=== PATIENT | female | born 1970 | race Caucasian/White ===

== ENCOUNTER 2016-07-29 09:00 | Outpatient (CLI) | payer BC ==
[~2016-07-29] VITALS: Ht 167.6 cm; Wt 88.0 kg
[~2016-07-29 09:00] MED LIST: ESTR1TAB24 PO; HYDR-707 PO; METF-380 PO; NF-ROP5T PO; PRV20T PO; SRTR100T PO
[2016-07-30] MEDS ORDERED: SULF500T7 PO (13:21)
[2016-07-30] MEDS ORDERED: PANT40TA2 PO (13:21)
== END 2016-07-29 10:01 ==
LOC: PREOP 09:00
PROVIDERS: ATTEND Surgery Pediatric Surgery
DX: Z01.818 Encounter for other preprocedural examination (principal); K62.5 Hemorrhage of anus and rectum; K21.9 Gastro-esophageal reflux disease without esophagitis

== ENCOUNTER 2016-07-30 09:54 | Day surgery (SDC) | payer BC ==
[~2016-07-30] VITALS: Ht 167.6 cm; Wt 88.0 kg
[2016-07-30] MEDS ORDERED: FLUMAZENIL (ROMAZICON) 0.1 MG/ML 5 ML VIAL INJ PRN (10:15)
[2016-07-30] MEDS ORDERED: LIDOCAINE JELLY 2% (XYLOCAINE) 5 ML TUBE MM PRN (10:15)
[2016-07-30] MEDS ORDERED: NALOXONE 0.4 MG/ML 1 ML (NARCAN) VIAL IVP PRN (10:15)
[2016-07-30] MEDS ORDERED: HURRICAINE EXT TUBE (BENZOCAINE) XX PRN (10:15)
[2016-07-30] MEDS ORDERED: fentaNYL INJECTION 100 MCG/2 ML AMP ONE ×3 (10:19→12:12)
[2016-07-30] MEDS ORDERED: NS IV 500 ML 500 ML IV PRN (10:20)
[2016-07-30] MEDS: fentaNYL INJECTION 100 MCG/2 ML AMP IVP PRN ×6 (10:25→12:28)
[2016-07-30 10:28] VITALS: BP 117/77
--- NOTE | 2016-07-30 10:37 | Conscious Sedation/ASA ---
Conscious Sedation Pre-Proced Time Reviewed: 10:35 ASA Class: 2 Airway Mallampati Classification: ([place] appropriate class) I. II. III, IV Lungs Heart ASA score ASA 1: a normal healthy patient ASA 2: a patient with a mild systemic disease (mid diabetes, controlled hypertension, obesity ASA 3: a patient with a severe systemic disease that limits activity (angina , COPD, prior Myocardial infarction) ASA 4: a patient with an incapacitating disease that is a constant threat to life (CHF, renal failure) ASA 5: a moribund patient not expected to survive 24 hrs. (ruptured aneurysm) ASA 6: a declared brain patient whose organs are being harvested. For emergent operations, add the letter E after the classification Grade 2 Sedation Plan: Analgesia, Amnesia, Plan communicated to team members, Discussed options with patient/fam, Discussed risks with patient/fam Note The patient is an appropriate candidate to undergo the planned procedure, sedation, and anesthesia. The patient immediately re-assessed prior to indication. FEDERICO HAIR MD Jul 30, 2016 10:37 am
--- NOTE | 2016-07-30 10:38 | Progress Note-Pre Operative ---
Pre-Operative Progress Note H&P Reviewed The H&P was reviewed, patient examined and no changes noted. Date Seen by Provider: Jul 30, 2016 Time Seen by Provider: 10:35 Date H&P Reviewed: Jul 30, 2016 Time H&P Reviewed: 10:35 Pre-Operative Diagnosis: GERD, abd pain, bloody diarrhea FEDERICO HAIR MD Jul 30, 2016 10:38 am
[2016-07-30] MEDS ORDERED: HYDROcodone/APAP 5 MG/325 MG (LORTAB) TAB PO PRN (10:45)
[2016-07-30] MEDS ORDERED: morphine INJ 10 MG/ML 1ML (SYR OR VIAL) IV PRN (10:45)
[2016-07-30] MEDS ORDERED: ACETAMINOPHEN 325 MG TABLET/CAPLET (TYLENOL) PO PRN (10:45)
[2016-07-30] MEDS ORDERED: ONDANSETRON 4 MG/2 ML (SDV) Z0FRAN IV PRN (10:45)
[2016-07-30] MEDS ORDERED: LIDOCAINE JELLY 2% (XYLOCAINE) 5 ML TUBE ONE (10:59)
[2016-07-30] MEDS ORDERED: HURRICAINE EXT TUBE (BENZOCAINE) ONE (11:00)
[2016-07-30] MEDS ORDERED: MIDAZOLAM 2 MG/2 ML (VERSED) VIAL ONE ×7 (11:00→12:12)
[2016-07-30] MEDS: MIDAZOLAM 2 MG/2 ML (VERSED) VIAL IVP PRN ×7 (11:35→12:35)
[2016-07-30 13:05] VITALS: BP 117/77
--- NOTE | 2016-07-30 13:19 | Progress Note-Post Operative ---
Post-Operative Progess Note Surgeon (s)/[employer] Certified Network Associate (s) Surgeon FEDERICO HAIR MD [employer] Certified Network Associate: none Pre-Operative Diagnosis GERD, abd pain, bloody diarrhea Post-Operative Diagnosis reflux esophagitis(class B), small HH(1.5cm), moderate gastritis. chronic stage 2 ext and int hemorrhoids, chronic anal-vaginal fistula, mild inflammation cecum. Procedure & Operative Findings Date of Procedure 07/30/16 Procedure Performed/Findings EGD with bx. Colonoscopy with bx. Anesthesia Type CS Estimated Blood Loss Estimated blood loss (mL): minimal Specimens/Packing Specimens Removed ge jxn, antrum. mutiple random colon and rectal bx, fistula bx. FEDERICO HAIR MD Jul 30, 2016 1:19 pm
[2016-07-30] MEDS ORDERED: PANT40TA2 PO (13:21)
[2016-07-30] MEDS ORDERED: SULF500T7 PO (13:21)
--- NOTE | 2016-07-30 13:22 | Discharge Inst-Surgical ---
D/C Lap Instructions-LAXMI New, Converted, or Re-Newed RX: RX on Chart Follow Up Appt in 2 weeks Activity as tolerated Low residue diet. Avoid Alcohol, Caffeine, Spicy [place] and Acid foods. Drink 64 fluid oz or more of fluids per day. Symptoms to Report: Fever over 101 degree F, Nausea/Vomiting If any problems/questions: Contact your physician or go to Emergency Room FEDERICO HAIR MD Jul 30, 2016 1:22 pm
[2016-07-30 13:35] VITALS: BP 102/63
[2016-07-30 14:00] VITALS: BP 102/63
--- NOTE | 2016-07-30 20:47 | OPERATIVE REPORT ---
DATE OF SERVICE: 07/30/2016 ATTENDING PRIMARY CARE PHYSICIAN: Dr. Mark Morataya. PREOPERATIVE DIAGNOSES: Gastroesophageal reflux disease, abdominal pain, rectal bleeding. POSTOPERATIVE DIAGNOSES: Reflux esophagitis class B, small hiatal hernia approximately 1.5 cm in size, moderate gastritis. No mucosal inflammatory change to indicate any upper gastrointestinal inflammatory bowel disease. Chronic stage II external internal hemorrhoids, palpable lesion with what appeared to be chronic scar tissue as well as a recurrent anovaginal fistula and mild inflammation of the cecum. PROCEDURE: EGD with biopsy, colonoscopy with biopsy. SURGEON: Federico Otero MD ANESTHESIA: Conscious sedation. ESTIMATED BLOOD LOSS: Minimal. FINDINGS: EGD reflux esophagitis class B, small hiatal hernia approximately 1.5 cm in size, moderate severity gastritis. Pylorus and duodenum appeared normal. There were no mucosal inflammatory changes throughout the upper gastrointestinal tract. Colonoscopy chronic stage II external internal hemorrhoids, recurrent anovaginal fistula with a chronic scar tissue, possible mild inflammation of the cecum. DISPOSITION: The patient tolerated the procedure well. INDICATIONS: The patient is a 46-year-old female who was initially seen on 07/19/2016. She reports issues with crampy abdominal pain and rectal bleeding as well as mucusy stools even during her teen years. This was initially mild; however, has worsened over time. Twenty years ago after the of her first child, she began having issues with rectal bleeding and did experience traumatic delivery requiring episiotomy. From that point, she developed what appears to be a fistula from the superficial anus to the vagina. She reports she has had a total of three surgeries to try to repair the fistula; however, all have recurred. She reports crampy abdominal pain with mucusy stool mixed with red blood. She did have a colonoscopy in 2011 and believes that to be normal. She also underwent a diagnostic laparoscopy in 2011 for suspected appendicitis and there were some mild serositis indicating potential inflammatory bowel disease. She also underwent an appendectomy at that time. She reports that her symptoms have continued to worsen over time which are symptoms consistent with inflammatory bowel disease, especially Crohn's disease. Upon further questioning, she does report that she has had aphthous ulcers frequently in her mouth. She was also diagnosed with Sjogren syndrome some time ago. DESCRIPTION OF PROCEDURE: The patient was brought to the endoscopy suite, laid in the left lateral decubitus position with head slightly elevated. After adequate IV pain and sedating medications, the mouthpiece was applied. The endoscope was placed in the mouth visualizing the pharynx and hypopharyngeal region. Vocal cords, epiglottis and vallecula identified and appeared to be normal. The endoscope was then gently intubated in the esophageal opening and esophagus insufflated. The endoscope was then advanced to the first, second and third portions of the esophagus. At the level of the GE junction, a reflux esophagitis class B identified. There were no ulcers or strictures identified in this region. A biopsy was taken with forceps with visualization of good hemostasis. The endoscope was then easily advanced in the stomach. The endoscope retroflexed, visualizing a small hiatal hernia approximately 1.5 cm in size. There was a moderate severity gastritis, more towards the stomach antrum. There were no ulcers or polyps identified. A biopsy was taken with forceps with visualization of good hemostasis. The endoscope was then advanced to the pylorus and the first and second portion of the duodenum. Throughout the upper gastrointestinal tract, there were no classic mucosal inflammatory changes to indicate any active inflammatory bowel disease. The endoscope was then slowly withdrawn taking a second look and suctioning all residual air with no additional findings. The patient tolerated this portion of the procedure well. For her gastritis, reflux esophagitis and hiatal hernia, we will recommend the necessary lifestyle and diet accommodation including small and more frequent meals, avoidance of eating at night as well as head elevation while lying supine. She also needs to proceed with smoking cessation as well as to avoid caffeinated beverages, spicy, greasy and acidic foods. We will also start her on Protonix 40 mg daily. Under the same conscious sedation anesthesia, we then proceeded with the colonoscopy portion of the procedure. A digital rectal examination was performed which revealed chronic stage II external and internal hemorrhoids. There was also a small sinus tract encompassing the anterior anus to the vagina consistent with recurrent anovaginal fistula. This was also palpable indicating some level of chronic granulomatous tissue or scar tissue formation. The endoscope was then intubated to the anus and rectum and gently insufflated. The fistula was identified. The endoscope was then advanced to the valves of [place] of the rectum with no mucosal inflammatory changes. We then proceeded to remainder of the descending, transverse and ascending colon to the cecum. At the level of the cecum, there may have been some very mild inflammatory changes. Random biopsies were then taken of the cecum, ascending colon, descending colon, rectum and around the anal fistula using biopsy forceps with visualization of good hemostasis. The patient tolerated this portion of the procedure well. We will await the biopsy results; however start her on 5-aminosalicylic acid in hopes of symptomatic control. Job ID: [id number] DocumentID: [id number] Dictated Date: 07/30/2016 13:10:55 Hydrology Teacher Date: 07/30/2016 20:46:41 Dictated By: FEDERICO OTERO MD
--- OUTSIDE RECORDS SUMMARY | 2016-08-02 14:44 | XMS REPORT | Continuity of Care Document ---
Author Author [facility] Organization [facility] Address Unknown Phone Unavailable Allergies Active Description Code Type Severity Reaction Onset Reported/Identified Relationship to Patient Clinical Status Yes No Known Drug Allergies Drug Allergy N/A N/A 02/16/2013 Yes Reglan Drug Allergy N/A RESTLESS LEG 02/19/2013 Medications Problems Date Dx Coded Attending Type Code Diagnosis Diagnosed By 02/19/2013 Jude Gauthier MD 250.00 DM2/NOS UNCOMP NSU 02/19/2013 Jude Gauthier MD Final 296.80 BIPOLAR DISORDER NOS 02/19/2013 Jude Gauthier MD Final 530.81 ESOPHAGEAL REFLUX 02/19/2013 Jude Gauthier MD Final 556.9 ULCERATIVE COLITIS NOS 02/19/2013 Jude Gauthier MD Final 619.1 FE DIGEST-GENIT FISTULA Procedures Code Description Performed By Performed On 70.73 REP RECTOVAGINAL FISTULA Jude Gauthier MD 02/19/2013 Results Encounters ACCT No. Visit Date/Time Discharge Status Pt. Type Provider Facility Loc./Unit Complaint [id number] 02/19/2013 05:23:00 2013 13:45:00 DIS Inpatient Jude Gauthier MD [facility] on [address]
== END 2016-07-30 14:00 | disposition home or self-care (01) ==
LOC: ENDO 09:54
PROVIDERS: ATTEND Surgery
DX: K62.5 Hemorrhage of anus and rectum (principal); N82.3 Fistula of vagina to large intestine; K64.1 Second degree hemorrhoids; K21.0 Gastro-esophageal reflux disease with esophagitis; K44.9 Diaphragmatic hernia without obstruction or gangrene; K29.70 Gastritis, unspecified, without bleeding; E11.9 Type 2 diabetes mellitus without complications; K58.9 Irritable bowel syndrome, unspecified; Q87.1 Congenital malformation syndromes predominantly associated with short stature; G25.81 Restless legs syndrome; F41.9 Anxiety disorder, unspecified; F32.9 Major depressive disorder, single episode, unspecified; F17.210 Nicotine dependence, cigarettes, uncomplicated; Z79.899 Other long term (current) drug therapy

== ENCOUNTER 2022-01-11 05:38 | Outpatient (CLI) | payer BC ==
[~2022-01-11] VITALS: Ht 167.6 cm; Wt 77.6 kg
[~2022-01-11 05:38] MED LIST changes: +PANT40TA2 PO; +SLF500T PO
[2022-01-11] MEDS ORDERED: ROPI5TAB3 PO (15:58)
[2022-01-11] MEDS ORDERED: OMEP40CA6 PO (15:58)
== END 2022-01-11 16:04 | disposition home or self-care (01) ==
LOC: PREOP 05:38
PROVIDERS: ATTEND Surgery
DX: Z01.818 Encounter for other preprocedural examination (principal)

== ENCOUNTER 2022-01-18 08:10 | Day surgery (SDC) | payer BC ==
[~2022-01-18] VITALS: Ht 167.6 cm; Wt 77.6 kg
[~2022-01-18 08:10] MED LIST changes: +OMEP40CA6 PO; +ROPI5TAB3 PO
[2022-01-18] MEDS ORDERED: LACTATED RINGERS 1,000 ML IV STA (08:13)
[2022-01-18] MEDS ORDERED: HURRICAINE EXT TUBE (BENZOCAINE) XX PRN (08:15)
--- NOTE | 2022-01-18 08:23 | Progress Note-Pre Operative ---
Pre-Operative Progress Note Date of Available H&P: Jan 07, 2022 Date H&P Reviewed: Jan 18, 2022 Time H&P Reviewed: 08:22 History & Physical: H&P Reviewed, Patient Examed, No changes noted Pre-Operative Diagnosis: Abdominal pain SEN CAIN DO Jan 18, 2022 08:23
[2022-01-18 08:29] VITALS: BP 143/84
[2022-01-18] MEDS ORDERED: MIDAZOLAM 2 MG/2 ML (VERSED) VIAL ONE (08:50)
[2022-01-18] MEDS ORDERED: PROPOFOL INJECTION 50 ML IV ONE (08:51)
[2022-01-18 09:15] VITALS: BP 119/58
--- NOTE | 2022-01-18 09:15 | Progress Note-Post Operative ---
Post-Operative Progess Note Surgeon (s)/Embedded Software Design Engineer (s) Surgeon SEN CAIN DO Embedded Software Design Engineer: none Pre-Operative Diagnosis Abdominal pain Post-Operative Diagnosis Gastritis Hiatal hernia Procedure & Operative Findings Date of Procedure 01/18/22 Procedure Performed/Findings EGD with bx PROCEDURE NOTE: After informed consent was obtained, the patient was brought to the endoscopy suite, placed in bed in left lateral decubitus position. She was administered IV sedation by the COMPOSING MACHINE OPERATOR who then monitored vitals the entire time, heart rate, blood pressure and pulse ox and the scope was inserted down the mouth through the esophagus into the stomach. Pushed into the stomach, past the antrum and into the duodenum. Duodenum looked good. Pulled back, noted some moderate Gastritis, took a couple of pictures and did a biopsy of the antrum and body of the stomach. Then retroflexed the scope, saw a small hiatal hernia, the stomach appeared to be almost nodular; took a picture of this. Then pulled the scope into the GE junction and did a biopsy of the GE junction. Pushed the scope back into the stomach, suctioned all the air out of the stomach. At this point pulled the scope up the esophagus and out the mouth. The patient tolerated the procedure, and she recovered in endoscopy suite. Anesthesia Type IV sedation by COMPOSING MACHINE OPERATOR Estimated Blood Loss Estimated blood loss (mL): scant Specimens/Packing Specimens Removed antral bx body of stomach bx GE jxn bx SEN CAIN DO Jan 18, 2022 09:15
--- NOTE | 2022-01-18 09:16 | Endoscopy Discharge Instruct ---
Endo Procedure/Findings Findings 1.: Gastritis 2.: Hiatal Hernia Discharge Instructions - Activity: You might feel a little sleepy until tomorrow. This is due to the medicine you received to relax you. Until tomorrow, you should: NOT drive a car, operate machinery or power tools. NOT drink any alcoholic beverages. NOT make any important decisions or sign importortant papers. Do not return to work until tomorrow, unless otherwise instructed. Resume previous activities tomorrow. Diet: Start by taking liquids. If you tolerate liquids, advance to solid food. 1.: EGD in 3 years Notify Physician - If you experience excessive bleeding, unusual abdominal pain, fever, or chest pain, contact your doctor immediately. SEN CAIN DO Jan 18, 2022 09:16
[2022-01-18 09:20] VITALS: BP 105/55
[2022-01-18 09:25] VITALS: BP 106/59
[2022-01-18 09:38] VITALS: BP 110/59
[2022-01-18 09:42] VITALS: BP 110/59
--- NOTE | 2022-01-18 13:29 | Anesthesia-General Post-Op ---
MAC Patient Condition Mental Status/LOC: Same as Preop Cardiovascular: Satisfactory Nausea/Vomiting: Absent Respiratory: Satisfactory Pain: Controlled Complications: Absent Post Op Complications Complications None Follow Up Care/Instructions Patient Instructions None needed. Anesthesiology Discharge Order Discharge Order Patient is doing well, no complaints, stable vital signs, no apparent adverse anesthesia problems. No complications reported per nursing. BRYAN SAGASTUME CRNA Jan 18, 2022 13:29
== END 2022-01-18 09:50 | disposition home or self-care (01) ==
LOC: ENDO 08:10
PROVIDERS: ATTEND Surgery
DX: K29.70 Gastritis, unspecified, without bleeding (principal); K20.90 Esophagitis, unspecified without bleeding; K44.9 Diaphragmatic hernia without obstruction or gangrene; F17.210 Nicotine dependence, cigarettes, uncomplicated; Z28.310 Unvaccinated for COVID-19